=== PATIENT | male | born 1990 | race Caucasian/White ===

== ENCOUNTER → 2016-07-19 | Outpatient (REF) | payer BC ==
[2016-07-19 14:24] LABS: BASO % 0.5 % (0.0-1.0); EOS # 0.1 K/mm3 (0.0-0.50); EOS % 1.4 % (0.0-3.0); LARGE UNSTAINED CELL # 0.1 K/mm3 (0.0-0.4); LARGE UNSTAINED CELL % 1.8 % (0.0-4.0); LYMPH # 1.3 K/mm3 (1.5-6.5); LYMPH % 27.9 % (24.0-44.0); MEAN CORPUSCULAR HEMOGLOBIN 32.7 pg (27.0-33.0); MEAN CORPUSCULAR HGB CONC 34.5 g/dl (32.0-36.5); MEAN CORPUSCULAR VOLUME 94.9 fl (80.0-96.0); MONO # 0.3 K/mm3 (0.0-0.8); MONO % 6.5 % (0.0-5.0); NEUTROPHILS # 2.7 K/mm3 (1.8-7.7); NEUTROPHILS % 61.9 % (36.0-66.0); PLATELET COUNT, AUTOMATED 171 k/mm3 (150-450); WHITE BLOOD COUNT 4.3 K/mm3 (4.0-10.0)
[2016-07-19 14:33] LABS: ALBUMIN 4.2 GM/DL (3.2-5.2); ALBUMIN/GLOBULIN RATIO 1.56 (1.00-1.93); ALKALINE PHOSPHATASE 59 U/L (45-117); ALT/SGPT 25 U/L (12-78); AMYLASE 64 U/L (25-115); ANION GAP 7 MEQ/L (8-16); AST/SGOT 11 U/L (15-37); BILIRUBIN,DIRECT < 0.1 MG/DL (0.0-0.2); BILIRUBIN,TOTAL 0.2 MG/DL (0.2-1.0); BLOOD UREA NITROGEN 17 MG/DL (7-18); CALCIUM LEVEL 8.6 MG/DL (8.5-10.1); CARBON DIOXIDE LEVEL 30 MEQ/L (21-32); CHLORIDE LEVEL 105 MEQ/L (98-107); CREATININE FOR GFR 0.88 MG/DL (0.70-1.30); GLOMERULAR FILTRATION RATE > 60.0 (>60); GLUCOSE, FASTING 101 MG/DL (70-105); POTASSIUM SERUM 4.3 MEQ/L (3.5-5.1); SODIUM LEVEL 142 MEQ/L (136-145); TOTAL PROTEIN 6.9 GM/DL (6.4-8.2)
[2016-07-20 09:22] LABS: CONTROL LINE HPYORI INT CTR LINE PRESENT
== END ==
LOC: M LABDRAW1 13:32
PROVIDERS: ATTEND Family Medicine
DX: R10.84 Generalized abdominal pain (principal)

== ENCOUNTER → 2017-08-06 | Outpatient (CLI) | payer BC ==
[2017-08-06 18:23] LABS: BASO % 0.7 % (0.0-1.0); EOS # 0.1 10^3/uL (0.0-0.50); EOS % 0.9 % (0.0-3.0); HEMATOCRIT 44.9 % (42.0-52.0); HEMOGLOBIN 15.5 g/dl (13.5-17.5); IMMATURE GRANULOCYTE % 0.4 % (0-3.0); LYMPH # 1.7 10^3/uL (1.5-6.5); LYMPH % 29.4 % (24.0-44.0); MEAN CORPUSCULAR HEMOGLOBIN 33.1 pg (27.0-33.0); MEAN CORPUSCULAR HGB CONC 34.5 g/dl (32.0-36.5); MEAN CORPUSCULAR VOLUME 95.9 fl (80.0-96.0); MONO # 0.5 10^3/uL (0.0-0.8); MONO % 9.1 % (0.0-5.0); NEUTROPHILS # 3.3 10^3/uL (1.8-7.7); NEUTROPHILS % 59.5 % (36.0-66.0); PLATELET COUNT, AUTOMATED 175 10^3/uL (150-450); RED BLOOD COUNT 4.68 10^6/uL (4.30-6.10); RED CELL DISTRIBUTION WIDTH 11.6 % (11.5-14.5); WHITE BLOOD COUNT 5.6 10^3/uL (4.0-10.0)
[2017-08-06 18:40] LABS: ALBUMIN 4.3 GM/DL (3.2-5.2); ALBUMIN/GLOBULIN RATIO 1.48 (1.00-1.93); ALKALINE PHOSPHATASE 60 U/L (45-117); ALT/SGPT 28 U/L (12-78); ANION GAP 4 MEQ/L (8-16); AST/SGOT 17 U/L (7-37); BILIRUBIN,TOTAL 0.3 MG/DL (0.2-1.0); BLOOD UREA NITROGEN 12 MG/DL (7-18); CARBON DIOXIDE LEVEL 32 MEQ/L (21-32); CHLORIDE LEVEL 104 MEQ/L (98-107); CREATININE FOR GFR 0.88 MG/DL (0.70-1.30); GLOMERULAR FILTRATION RATE > 60.0 (>60); GLUCOSE, FASTING 92 MG/DL (70-100); POTASSIUM SERUM 4.4 MEQ/L (3.5-5.1); SODIUM LEVEL 140 MEQ/L (136-145); TOTAL PROTEIN 7.2 GM/DL (6.4-8.2)
== END ==
LOC: M LAB 16:58
DX: R10.84 Generalized abdominal pain (principal)

== ENCOUNTER → 2020-01-30 | Outpatient (CLI) | payer BC | LOC: M WUC 11:05 | PROVIDERS: ATTEND Family Medicine | DX: R30.0 Dysuria (principal) ==

== ENCOUNTER → 2020-04-28 | Outpatient (REF) | payer BC ==
[2020-04-28 13:23] LABS: HEMATOCRIT 47.3 % (42.0-52.0); MEAN CORPUSCULAR HEMOGLOBIN 32.3 pg (27.0-33.0); MEAN CORPUSCULAR HGB CONC 33.8 g/dl (32.0-36.5); MEAN CORPUSCULAR VOLUME 95.6 fl (80.0-96.0); PLATELET COUNT, AUTOMATED 195 10^3/uL (150-450); RED BLOOD COUNT 4.95 10^6/uL (4.30-6.10); WHITE BLOOD COUNT 4.8 10^3/uL (4.0-10.0)
[2020-04-28 14:03] LABS: ALBUMIN 4.4 GM/DL (3.2-5.2); ALT/SGPT 30 U/L (12-78); BILIRUBIN,TOTAL 0.5 MG/DL (0.2-1.0); BLOOD UREA NITROGEN 17 MG/DL (7-18); CALCIUM LEVEL 9.3 MG/DL (8.5-10.1); CARBON DIOXIDE LEVEL 33 MEQ/L (21-32); CHLORIDE LEVEL 103 MEQ/L (98-107); CHOLESTEROL LEVEL 147 MG/DL (<200); CHOLESTEROL RISK RATIO 2.578 (<5); CREATININE FOR GFR 0.89 MG/DL (0.70-1.30); GLOMERULAR FILTRATION RATE > 60.0 (>60); GLUCOSE, FASTING 99 MG/DL (70-100); HDL CHOLESTEROL 57 MG/DL (>40); LDL CHOLESTEROL 69 MG/DL (<100); NON-HDL-C 90 MG/DL; SODIUM LEVEL 142 MEQ/L (136-145); TRIGLYCERIDES LEVEL 107 MG/DL (<150)
== END ==
LOC: M LABDRWAD 12:27
PROVIDERS: ATTEND Family Medicine
DX: I10 Essential (primary) hypertension (principal)

== ENCOUNTER 2020-09-10 09:05 | Emergency (ER) | payer BC ==
[~2020-09-10] VITALS: Ht 167.6 cm; Wt 81.2 kg
[2020-09-10 09:06] VITALS: BP 162/98
[2020-09-10] MEDS ORDERED: LISI10TA22 PO (09:15)
[2020-09-10] MEDS ORDERED: COLA100C5 PO (09:15)
[2020-09-10] MEDS ORDERED: VALA500T5 PO (09:15)
--- NOTE | 2020-09-10 10:07 | REP ---
INDICATION: right renal colic COMPARISON: 12/27/2015. TECHNIQUE: CT Scan of the abdomen and pelvis was performed without intravenous contrast. Sagittal and coronal reconstruction images performed. FINDINGS: Lung bases: Unremarkable. Liver: Grossly unremarkable. Gallbladder: Unremarkable. Spleen: Grossly unremarkable. Adrenals: Normal. Pancreas: Grossly unremarkable.. Kidneys: There is a 2 mm calculus in the distal right ureter. There is mild right hydroureteronephrosis. There is a punctate calcification in the right upper pole collecting system and a 3 mm calcification in the mid right renal collecting system. There is no left renal or ureteral calculus and no hydroureteronephrosis. Small and large bowel: Grossly unremarkable. Free fluid: None. Abdominal aorta: No aneurysm. Adenopathy: None. Appendix: Not inflamed. Osseous structures: There is mild chronic compression deformity of L2.. Pelvis: No mass. No bladder calculus seen. There is a small umbilical hernia containing noninflamed fat. IMPRESSION: There is a 2 mm calculus in the distal right ureter. There is mild right hydroureteronephrosis. Two small right intrarenal calculi also identified. <Electronically signed by Lenny Herrera > 09/10/20 1000
[2020-09-10] MEDS ORDERED: TAMSULOSIN 0.4 MG CAP PO ONE (10:10)
[2020-09-10] MEDS ORDERED: KETOROLAC 30 MG/ML 1ML VIAL IV ONE (10:10)
[2020-09-10] MEDS ORDERED: HYDR-3713 PO (10:13)
[2020-09-10] MEDS ORDERED: ONDA4TAB6 PO (10:13)
[2020-09-10] MEDS ORDERED: FLOM0.4C39 PO (10:13)
== END 2020-09-10 11:46 | disposition home or self-care (01) ==
LOC: M ED 09:05
DX: N20.1 Calculus of ureter (principal); I10 Essential (primary) hypertension; K58.1 Irritable bowel syndrome with constipation; Z79.899 Other long term (current) drug therapy
CPT/HCPCS: 74176; 81001; 99282; J1885

== ENCOUNTER 2020-09-12 17:27 | Inpatient (IN) | payer BC ==
[~2020-09-12] VITALS: Ht 167.6 cm; Wt 78.4 kg
[~2020-09-12 17:27] MED LIST: COLA100C5 PO; FLOM0.4C39 PO; HYDR-3713 PO; LISI10TA22 PO; ONDA4TAB6 PO; VALA500T5 PO
[2020-09-12] MEDS ORDERED: FAMO40TA3 PO (17:38)
[2020-09-12] MEDS ORDERED: NS 1,000 ML IV ONE (18:45)
[2020-09-12] MEDS ORDERED: KETOROLAC 30 MG/ML 1ML VIAL IV ONE (18:45)
[2020-09-12 19:26] LABS: BASO % 0.2 % (0.0-1.0); LYMPH # 0.9 10^3/uL (1.5-5.0); LYMPH % 6.9 % (24.0-44.0); MEAN CORPUSCULAR HEMOGLOBIN 32.5 pg (27.0-33.0); MEAN CORPUSCULAR HGB CONC 34.1 g/dl (32.0-36.5); MEAN CORPUSCULAR VOLUME 95.2 fl (80.0-96.0); MONO # 1.2 10^3/uL (0.0-0.8); MONO % 9.6 % (2.0-8.0); NEUTROPHILS # 10.4 10^3/uL (1.5-8.5); NEUTROPHILS % 82.9 % (36.0-66.0); PLATELET COUNT, AUTOMATED 164 10^3/uL (150-450); RED BLOOD COUNT 4.62 10^6/uL (4.30-6.10); WHITE BLOOD COUNT 12.5 10^3/uL (4.0-10.0)
[2020-09-12 19:44] LABS: ALBUMIN 4.3 GM/DL (3.2-5.2); BILIRUBIN,DIRECT 0.2 MG/DL (0.0-0.2); BILIRUBIN,TOTAL 0.7 MG/DL (0.2-1.0); TOTAL PROTEIN 7.4 GM/DL (6.4-8.2)
[2020-09-12] MEDS ORDERED: cefTRIAXone SOD 1 GM in D5W MINI-BAG PLUS 50 ML IV ONE (20:05)
--- NOTE | 2020-09-12 20:21 | REPVR ---
PROCEDURE INFORMATION: Exam: CT Abdomen And Pelvis Without Contrast Exam date and time: 09/12/2020 6:55 PM Age: 30 years old Clinical indication: Abdominal pain; Additional info: Increased/worsening R flank pain, CT 2 days ago stone TECHNIQUE: Imaging protocol: Computed tomography of the abdomen and pelvis without contrast. Radiation optimization: All CT scans at this facility use at least one of these dose optimization techniques: automated exposure control; mA and/or kV adjustment per patient size (includes targeted exams where dose is matched to clinical indication); or iterative reconstruction. COMPARISON: CT ABD PELVIS W/O CONTRAST 09/10/2020 9:47 AM FINDINGS: Liver: Normal. No mass. Gallbladder and bile ducts: Normal. No calcified stones. No ductal dilation. Pancreas: Normal. No ductal dilation. Spleen: Normal. No splenomegaly. Adrenal glands: Normal. No mass. Kidneys and ureters: Right perinephric fluid, edema and stranding with mild right hydronephrosis and hydroureter with periureteral edema which extends to a distal ureteral calculus which is 3 mm above the UVJ the UVJ and measures 2 mm and has progressed very slightly since the prior study. There is increased right perinephric fluid and edema since the prior study and degree of hydronephrosis is increased. Small nonobstructing right renal calculi are noted. Stomach and bowel: Unremarkable. No obstruction. No mucosal thickening. Appendix: A normal appendix is seen. Intraperitoneal space: Unremarkable. No free air. No significant fluid collection. Vasculature: Unremarkable. No abdominal aortic aneurysm. Lymph nodes: Unremarkable. No enlarged lymph nodes. Urinary bladder: Unremarkable as visualized. Reproductive: Unremarkable as visualized. Bones/joints: Unremarkable. No acute fracture. Soft tissues: Unremarkable. IMPRESSION: 1. 2 mm distal right ureteral calculus approximately 3 mm above the right UVJ which has progressed very slightly since the prior study of 09/10/2020. The degree of obstructive uropathy is increased including increased perinephric fluid and edema. 2. Small nonobstructing right renal calculi are again noted. Electronically signed by: Billy Moran On 09/12/2020 20:21:04 PM
[2020-09-12] MEDS ORDERED: HYDR-3713 PO (20:36)
[2020-09-12] MEDS ORDERED: FLOM0.4C39 PO (20:38)
[2020-09-12] MEDS ORDERED: ONDA4TAB6 PO (20:38)
--- NOTE | 2020-09-12 20:52 | SMCUROLCON ---
Urology Consultation General Date of Consultation 09/12/20 Reason For Consultation This patient is seen for right nephroureterolithiasis with a 2 mm left UVJ obstructing stone with hydronephrosis and two 1-2 mm stones in the renal pelvis History of Present Illness The patient is a 30-year-old with a past medical history for NL, has been in the ER last 3 days now with refractory renal colic , anorexia, leukocytosis, HIREN and has not passed ureteral stone despite Flomax. Pt will be admitted for hydration, IV abx and cystoscopy and ureteral stenting. Currently being COVID tested. Allergies Allergies: Coded Allergies: No Known Allergies (Verified , 01/13/09) Vital Signs/I&O Vital Signs Date Time Temp Pulse Resp B/P (MAP) Pulse Ox O2 Delivery O2 Flow Rate FiO2 09/12/20 19:53 16 09/12/20 17:28 99.2 91 100 Room Air Laboratory Data 24H Labs Laboratory Tests 2 09/12/20 17:43: Urine Color COLORLESS, Urine Appearance CLEAR, Urine pH 6.0, Urine Specific [place] 1.002, Urine Protein NEGATIVE, Urine Glucose (UA) NEGATIVE, Urine Ketones NEGATIVE, Urine Blood 1+H, Urine Nitrite NEGATIVE, Urine Bilirubin NEGATIVE, Urine Urobilinogen 0.2, Urine Leukocyte Esterase NEGATIVE, Urine WBC (Auto) 1, Urine RBC (Auto) 1, Urine Hyaline Casts (Auto) 0, Urine Bacteria (Auto) NEGATIVE, Urine Squamous Epithelial Cells 0, Urine Sperm (Auto) 09/12/20 19:05: Immature Granulocyte % (Auto) 0.4, Neutrophils (%) (Auto) 82.9H, Lymphocytes (%) (Auto) 6.9L, Monocytes (%) (Auto) 9.6H, Eosinophils (%) (Auto) 0.0, Basophils (%) (Auto) 0.2, Neutrophils # (Auto) 10.4H, Lymphocytes # (Auto) 0.9L, Monocytes # (Auto) 1.2H, Eosinophils # (Auto) 0.0, Basophils # (Auto) 0.0, Nucleated Red Blood Cells % (auto) 0.0, Total Bilirubin 0.7, Direct Bilirubin 0.2, Aspartate Amino Transf (AST/SGOT) 12, Alanine Aminotransferase (ALT/SGPT) 24, Alkaline Phosphatase 53, Total Protein 7.4, Albumin 4.3, Albumin/Globulin Ratio 1.4, Lipase 73 09/12/20 19:09: Lactic Acid Level 1.9 CBC/BMP Laboratory Tests 09/12/20 19:05 Assessment Pre-op dx : Right nephrolithiasis and hydronephrosis and HIREN Planned Procedure: Cystoscopy and insertion of right ureteral stent ICD 10: N20.2 CPT: 12403 Equipment requests; 21 Fr Cystoscope 6 Fr Double J ureteral stent Fluoroscopy DUSTY LIND M.D. Sep 12, 2020 20:49
[2020-09-12] MEDS ORDERED: FAMOTIDINE 20 MG TAB PO PRN (21:20)
[2020-09-12] MEDS ORDERED: ONDANSETRON 4MG/2ML VIAL IV PRN (21:20)
[2020-09-12] MEDS ORDERED: MAALOX 30 ML SUSP *UDC PO PRN (21:20)
[2020-09-12] MEDS ORDERED: MORPHINE 2 MG/ML 1ML VIAL (J2270) IV PRN (21:20)
[2020-09-12] MEDS ORDERED: MOM 30ML SUSPENSION UDC PO PRN (21:20)
[2020-09-12] MEDS ORDERED: ACETAMINOPHEN TAB 650MG DOSE (2X325MG) PO PRN (21:20)
--- NOTE | 2020-09-12 21:49 | HPEPDOC ---
[facility] Medical History & Physical Date of Admission Sep 12, 2020 Date of Service: Sep 12, 2020 History and Physical CHIEF COMPLAINT: Right flank pain HISTORY OF PRESENT ILLNESS: 30-year-old male with a past medical history of hypertension, IBS, nephrolithiasis, oral HSV, last seen in the ER and 09/10/20 for right flank pain with nephrolithiasis now returns with persistently worsening right flank pain. Patient reports a personal history of nephrolithiasis in the past with similar complaints. On arrival, patient was afebrile and found to be hypertensive to 174/103. Mild leukocytosis of 12.5 with 82.9% neutrophils. ER reports, creatinine of 1.5. CT imaging of the abdomen and pelvis without contrast showing a 2 mm distal right ureteral calculus 3 mm above the right UVJ with hydronephrosis. Small nonobstructing right renal calculi are again noted. Patient was given a dose of ceftriaxone, 1 L normal saline bolus as well as 15 mg of IV ketorolac. Dr. Barnett, urologist, was consulted in the ER. Patient was diagnosed with R nephroureterolithiasis with hydronephrosis and acute kidney injury secondary to 2 mm R UVJ obstructing stone and to 1-2 mm stones in the renal pelvis. Patiently admitted to hospitalist service with plan for cystoscopy and insertion of a right ureteral stent. PAST MEDICAL HISTORY: HTN IBS Oral HSV on chronic suppression therapy PAST SURGICAL HISTORY: denies prior surgical history SOCIAL HISTORY: Patient denies smoking Uses etoh several times per week, enough to become drunk Patient denies illicit drug use ALLERGIES: Please see below. REVIEW OF SYSTEMS: 10 point ROS was conducted, relevant findings are noted in the HPI HOME MEDICATIONS: Please see below. PHYSICAL EXAMINATION: VITAL SIGNS: please see below General: NAD, comfortable HEENT: PERRLA, EOMI, sclerae clear Neck: supple, normal ROM, no JVD Respiratory: lungs CTAB, no wheeze, no rales, no crackles CVS: RRR, normal S1, S2, no murmurs Abdo: soft, no masses, no hepatosplenomegaly, BS+, no rebound tenderness. R fla nk pain, CVA tenderness + Extremities: no edema, pulses 2+ MSK: no joint deformities, normal ROM Neuro: no focal neuro deficits, moving all 4 extremities, CN2-12 intact. Strength 5/5 in all 4 extremities. No nystagmus. Psych: calm, cooperative, AAO x 3 LABORATORY DATA: See below. IMAGING: CT abdomen and pelvis wo contrast (09/12/20): 1. 2 mm distal right ureteral calculus approximately 3 mm above the right UVJ which has progressed very slightly since the prior study of 09/10/2020. The degree of obstructive uropathy is increased including increased perinephric fluid and edema. 2. Small nonobstructing right renal calculi are again noted. MICROBIOLOGY: Please see below. ASSESSMENT: 30-year-old male with a past medical history of hypertension, IBS, nephrolithiasis, oral HSV, being admitted for right flank pain due to hydronephrosis secondary to right nephroureterolithiasis. Plan for ureteral stent placement by Dr. Barnett. . PLAN: # R sided hydronephrosis 2/2 obstructive uropathy - 2mm stone seen in R ureter 3 mm above R UVJ - CT imaging reviewed above - give empiric ceftriaxone per urology - Plan for R ureteral stenting this evening by Dr. Barnett - keep NPO - pain control with morphine - IVF NS @125 cc/hr HTN - BP elevated to 174/103, improved to 160/84 after administration of toradol by ER - takes lisinopril at home, will hold due to HIREN - pain control with morphine - give 5 mg IV hydralazine once HIREN - Cr 1.5, due to obstructive uropathy - 1+ blood on UA otherwise no abnormalities - avoid nephrotoxic agents, will hold lisinopril avoid NSAIDs - pain control morphine - plan for ureteral stent placement Excess alcohol consumption - drinks 3-4 times per week, gets drunk - will place on prophylactic CIWA protocol while inpatient. Oral HSV - takes suppresive acyclovir 500 mg qhs - will hold in setting of HIREN. DVT ppx: SCDs. TEDs. Dispo: pending clinical improvement. Dispo: admission expect to last > 2 midnights Vital Signs Vital Signs Date Time Temp Pulse Resp B/P (MAP) Pulse Ox O2 Delivery O2 Flow Rate FiO2 09/12/20 19:53 16 09/12/20 17:28 99.2 91 100 Room Air Laboratory Data Labs 24H Laboratory Tests 2 09/12/20 17:43: Urine Color COLORLESS, Urine Appearance CLEAR, Urine pH 6.0, Urine Specific [place] 1.002, Urine Protein NEGATIVE, Urine Glucose (UA) NEGATIVE, Urine Ketones NEGATIVE, Urine Blood 1+H, Urine Nitrite NEGATIVE, Urine Bilirubin NEGATIVE, Urine Urobilinogen 0.2, Urine Leukocyte Esterase NEGATIVE, Urine WBC (Auto) 1, Urine RBC (Auto) 1, Urine Hyaline Casts (Auto) 0, Urine Bacteria (Auto) NEGATIVE, Urine Squamous Epithelial Cells 0, Urine Sperm (Auto) 09/12/20 19:05: Immature Granulocyte % (Auto) 0.4, Neutrophils (%) (Auto) 82.9H, Lymphocytes (%) (Auto) 6.9L, Monocytes (%) (Auto) 9.6H, Eosinophils (%) (Auto) 0.0, Basophils (%) (Auto) 0.2, Neutrophils # (Auto) 10.4H, Lymphocytes # (Auto) 0.9L, Monocytes # (Auto) 1.2H, Eosinophils # (Auto) 0.0, Basophils # (Auto) 0.0, Nucleated Red Blood Cells % (auto) 0.0, Total Bilirubin 0.7, Direct Bilirubin 0.2, Aspartate Amino Transf (AST/SGOT) 12, Alanine Aminotransferase (ALT/SGPT) 24, Alkaline Phosphatase 53, Total Protein 7.4, Albumin 4.3, Albumin/Globulin Ratio 1.4, Lipase 73 09/12/20 19:09: Lactic Acid Level 1.9 CBC/BMP Laboratory Tests 09/12/20 19:05 Home Medications Scheduled Docusate Sodium (Colace) 100 Mg Capsule, 100 MG PO BID Lisinopril (Lisinopril) 10 Mg Tablet, 10 MG PO QHS Tamsulosin HCl (Flomax) 0.4 Mg Capsule, 0.4 MG PO DAILY Valacyclovir HCl (Valacyclovir) 500 Mg Tablet, 500 MG PO QHS Scheduled PRN Famotidine (Famotidine) 40 Mg Tablet, 40 MG PO DAILY PRN for ACID REFLUX Hydrocodone/Acetaminophen (Hydrocodone-Acetamin 5-325 mg) 1 Each Tablet, 1 TAB PO Q6H PRN for PAIN MDD 4 Ondansetron (Ondansetron Odt) 4 Mg Tab.rapdis, 4 MG PO Q6-8HP PRN for nausea/v omiting Allergies Coded Allergies: No Known Allergies (Verified , 01/13/09) A-FIB/CHADSVASC A-FIB History Current/History of A-Fib/PAF?: No JADEN JAMIL MD Sep 12, 2020 21:49
[2020-09-12] MEDS ORDERED: hydrALAZINE 20MG/ML 1ML VIAL (J0360 PER 20MG) IV ONE (21:50)
[2020-09-12] MEDS ORDERED: MIDAZOLAM INJ 2MG/2ML VIAL (J2250 PER 1MG) As Ordered ONE (21:50)
[2020-09-12] MEDS ORDERED: fentaNYL 100 MCG/2 ML INJECTION (J3010) As Ordered ONE (21:50)
[2020-09-12] MEDS ORDERED: ONDANSETRON 4MG/2ML VIAL As Ordered ONE (21:51)
[2020-09-12] MEDS ORDERED: LIDOCAINE 2% 100MG/5ML SDV (FOR ANES.) As Ordered ONE (21:51)
[2020-09-12] MEDS ORDERED: propofoL 200 MG/20 ML VIAL As Ordered ONE (21:51)
[2020-09-12 22:10] LABS: RSV AMPLIFICATION NEGATIVE (NEGATIVE)
[2020-09-12] MEDS ORDERED: CONRAY-60 60% 50ML VIAL (Q9961) As Ordered ONE (23:01)
[2020-09-12] MEDS ORDERED: ACETAMINOPHEN 1000MG 100ML IV BTL (OFIRMEV) (J0131 PER 10MG) As Ordered ONE (23:06)
--- NOTE | 2020-09-12 23:47 | ROOPDOC ---
[facility] Report Of Operation Report of Operation DATE OF PROCEDURE: 09/12/20 PREPROCEDURE DIAGNOSES: Right Ureteral stone and Hydronephrosis POSTPROCEDURE DIAGNOSES: same PROCEDURE: Cystoscopy and right ureteral stent SURGEON: Chris Barnett MD INSPECTOR ASSEMBLY: none ANESTHESIA: LMA General, Dr. SAEZ ESTIMATED BLOOD LOSS: Approximately 0 mL. COMPLICATIONS: none REMARKS: Hydronephrotic drip PROCEDURE NOTE: 30 yo male h/o colitis and constipation with right distal ureteral stone and hydronephrosis, leukocytosis and HIREN DESCRIPTION OF PROCEDURE: Patient was take to the OR. Time out performed. He was in the supine position. Received MAC anesthesia and had received Ceftriaxone 2 gm IV in the ER He was placed in the dorsal lithotomy position, prepped and draped in the usual sterile fashion. A 21 Fr cystoscope was inserted into the urethra and bladder were unremarkable. The right ureteral orifice was identified and intubated with a wire and 5 Fr open ended catheter inserted into the renal pelvis and urine culture sent. The guidewire was reinserted and a 6 Fr multi-length double J ureteral stent inserted into the kidney with good coils in the renal pelvis and bladder. The bladder was drained and the cystoscope was removed. She was awaken and transferred to the PACU. There were no complications. Lukas has been admitted to the hospitalist service overnight for observation. Plan is for him to follow up in 1 week in the out patient urology office with re-imaging. If the stones have passed then remove the stent if not then perform ureteroscopy. CHRIS BARNETT M.D. Sep 12, 2020 23:47
[2020-09-13] VITALS (7 sets, daily range): BP systolic 101–131; BP diastolic 56–80
[2020-09-13] MEDS ORDERED: LORazepam 2 MG TAB PO PRN (00:20)
[2020-09-13] MEDS: NS 1,000 ML IV SCH ×2 (00:41→09:23)
[2020-09-13 06:40] LABS: HEMATOCRIT 40.2 % (42.0-52.0); HEMOGLOBIN 13.9 g/dl (13.5-17.5); LYMPH # 0.7 10^3/uL (1.5-5.0); LYMPH % 9.6 % (24.0-44.0); MEAN CORPUSCULAR HEMOGLOBIN 33.3 pg (27.0-33.0); MEAN CORPUSCULAR HGB CONC 34.6 g/dl (32.0-36.5); MEAN CORPUSCULAR VOLUME 96.4 fl (80.0-96.0); MONO # 0.6 10^3/uL (0.0-0.8); MONO % 7.3 % (2.0-8.0); NEUTROPHILS # 6.2 10^3/uL (1.5-8.5); NEUTROPHILS % 82.6 % (36.0-66.0); PLATELET COUNT, AUTOMATED 151 10^3/uL (150-450); RED BLOOD COUNT 4.17 10^6/uL (4.30-6.10); WHITE BLOOD COUNT 7.5 10^3/uL (4.0-10.0)
[2020-09-13 07:12] LABS: ALBUMIN 3.4 GM/DL (3.2-5.2); ALT/SGPT 18 U/L (12-78); BILIRUBIN,TOTAL 0.5 MG/DL (0.2-1.0); BLOOD UREA NITROGEN 12 MG/DL (7-18); CALCIUM LEVEL 8.3 MG/DL (8.5-10.1); CARBON DIOXIDE LEVEL 29 MEQ/L (21-32); CHLORIDE LEVEL 105 MEQ/L (98-107); CREATININE FOR GFR 0.82 MG/DL (0.70-1.30); GLOMERULAR FILTRATION RATE > 60.0 (>60); GLUCOSE, FASTING 102 MG/DL (70-100); MAGNESIUM LEVEL 2.4 MG/DL (1.8-2.4); POTASSIUM SERUM 4.8 MEQ/L (3.5-5.1); SODIUM LEVEL 138 MEQ/L (136-145); TOTAL PROTEIN 6.2 GM/DL (6.4-8.2)
[2020-09-13] MEDS ORDERED: BACI1CAP PO (08:08)
[2020-09-13] MEDS ORDERED: CIPR-249 PO (08:08)
--- NOTE | 2020-09-13 08:35 | REP ---
INDICATION: STENT IN OR. COMPARISON: None. TECHNIQUE: Intraoperative fluoroscopic imaging using C-arm technique FINDINGS: Images demonstrate the patient to be status post satisfactory right ureteral stent placement. Total fluoroscopic time 10 seconds. IMPRESSION: Status post right ureteral stent placement. <Electronically signed by Krishna Weber > 09/13/20 0812
[2020-09-13] MEDS: DOCUSATE SODIUM 100MG CAPSULE PO SCH ×2 (09:00→09:21)
[2020-09-13] MEDS ORDERED: THIAMINE 100 MG TAB PO SCH (09:00)
[2020-09-13] MEDS ORDERED: FOLIC ACID 1 MG TAB PO SCH (09:00)
[2020-09-13] MEDS ORDERED: MULTIVITAMINS/MINERALS THERAP 1 TAB PO SCH (09:00)
[2020-09-13] MEDS ORDERED: cefTRIAXone SOD 1 GM in D5W MINI-BAG PLUS 50 ML IV SCH (09:00)
[2020-09-13] MEDS ORDERED: TAMSULOSIN 0.4 MG CAP PO SCH (09:00)
[2020-09-13] MEDS ORDERED: SENO8.6T10 PO (09:08)
[2020-09-13] MEDS ORDERED: MOM30SS PO (09:11)
[2020-09-13] MEDS ORDERED: PERC7.5T11 PO (10:58)
--- NOTE | 2020-09-13 13:39 | DSES ---
DISCHARGE SUMMARY DATE OF ADMISSION: 09/12/2020 DATE OF DISCHARGE: 09/13/2020 CONSULTING PHYSICIAN: Urologist, Chris Barnett MD. PROCEDURES DURING THIS ADMISSION: 09/12/2020 cystoscopy with stents and retrograde pyelogram. PRIMARY DISCHARGE DISAGNOSES: 1. Right sided hydronephrosis secondary to obstructive uropathy. 2. Right ureteral stone, 2 mm stone above the right UVJ junction. 3. Hypertensive urgency secondary to pain. 4. Acute kidney injury due to obstructive uropathy. 5. Alcohol abuse. 6. History of oral HSV. DISCHARGE MEDICATIONS: 1. Cipro 500 twice a day. 2. Bacid 1 cap with meals. 3. Milk of Magnesia 30 mL every 4 hours as needed. 4. Percocet 1 tablet three times a day as needed. 5. Senokot 2 tablets twice a day. 6. Famotidine 40 daily. 7. Lisinopril 10 at bedtime. 8. Zofran 4 every 6-8 hours as needed. 9. Flomax 0.4 daily. 10. Valacyclovir 500 at bedtime. Patient says that he has no more hydrocodone/acetaminophen 1 tablet q6h as needed for pain at home. DISCHARGE INSTRUCTIONS: 1. Follow up with primary care within 1 week of hospital discharge. 2. Follow up with urologist within 1 week of hospital discharge. HISTORY AND HOSPITAL COURSE: This is a 30-year-old male with a history of oral HSV on chronic suppressive therapy, hypertension, IBS, nephrolithiasis seen in the ER on 09/10/2020 due to right flank pain and nephrolithiasis, returns with persistent pain, found to have hydronephrosis and obstructive uropathy with worsening renal dysfunction and a 2 mm distal right ureteral calculus 3 mm above the right UVJ junction with hydronephrosis. Patient was kept n.p.o., placed on I.V. fluids. White count was 12.5. He was started on I.V. ceftriaxone, brought emergently to the operating room where he underwent cystoscopy and right ureteral stent placement by Dr. Chris Barnett. The patient is to follow up as outpatient with urology for stent removal. He had no fever or chills, white count decreased from 12.5 to 7.5 on I.V. ceftriaxone. He had continued episode of gross hematuria, but hemoglobin remained stable and he was asymptomatic not requiring RBC transfusion. Patient is medically stable for hospital discharge. PHYSICAL EXAMINATION ON DISCHARGE: Temperature 97.3, pulse 76, respiratory rate 18, blood pressure 115/70, 95% on room air. General: Patient is awake, alert, oriented to person, place and time, answering questions appropriately. Lungs: Clear to auscultation, no wheezes, rhonchi or rales. Heart: S1 and S2, sinus rhythm. Abdomen: Soft, nontender, nondistended, positive bowel sounds. No CVA tenderness. Extremities: No cyanosis, clubbing or pitting edema. LABORATORY DATA ON DISCHARGE: Laboratory data and microbiology please see the chart. IMAGING STUDIES: Please see the chart. Time spent on discharge: Thirty minutes.
== END 2020-09-13 11:45 | disposition home or self-care (01) | DRG 465 ==
LOC: M ED 17:27 → M ED INP 21:20 → M MS5PR 09-13 00:20
PROVIDERS: ADMIT Family Medicine; ATTEND General Practice
PROC: 0T768DZ Dilation of Right Ureter with Intraluminal Device, Via Natural or Artificial Opening Endoscopic (ICD-10-PCS; principal; 2020-09-12 20:51)
DX: N13.2 Hydronephrosis with renal and ureteral calculous obstruction (principal); N17.9 Acute kidney failure, unspecified; I10 Essential (primary) hypertension; K58.9 Irritable bowel syndrome, unspecified; F10.10 Alcohol abuse, uncomplicated; Z79.899 Other long term (current) drug therapy; I16.0 Hypertensive urgency